=== PATIENT | male | born 1975 | race Caucasian/White ===

== ENCOUNTER 2020-10-15 04:14 | Emergency (ER) | payer BC, OTHER ==
[~2020-10-15] VITALS: Ht 182.9 cm; Wt 81.6 kg
--- NOTE | 2020-10-15 04:15 | NUR ---
PT AAOX4. BIBRA FROM HOME C/O HAVING SEIZURE LASTING ABOUT 1 MIN, WITNESSED BY , NO INJURIES NOTED. PLACED IN BED 11 ON MONITOR AND PULSE OX. SEIZURE PREC INITIATED. ER MD AT BEDSIDE. AWAITING ORDERS. PER RA REPORT, PT HAVING BENZO WITHDRAWLS.
[2020-10-15] MEDS ORDERED: LORAZEPAM INJ 2 MG/ML VIAL ONE (04:44)
[2020-10-15] MEDS: IV NS 0.9% 1,000 ML BAG IV ONE (04:50)
[2020-10-15 04:51] LABS: BASOPHILS % (AUTO) 0.3 % (0.0-2.0); EOSINOPHILS % (AUTO) 3.8 % (0.0-6.0); HEMATOCRIT 40 % (39-51); HEMOGLOBIN 13.8 g/dL (13.5-17.5); LYMPHOCYTES # (AUTO) 1.7 K/uL (0.8-4.8); MEAN CORPUSCULAR HGB CONC 34 g/dl (31.0-36.0); MEAN CORPUSCULAR VOLUME 82 fL (80-96); MONOCYTES # (AUTO) 0.5 K/uL (0.1-1.30); MONOCYTES % (AUTO) 7.7 % (2.0-12.0); NEUTROPHILS # (AUTO) 4.1 K/uL (1.8-8.9); NEUTROPHILS % (AUTO) 62.2 % (43.0-81.0); PLATELET COUNT (AUTO) 257 K/uL (150-450); RED BLOOD CELL COUNT(AUTO) 4.91 MIL/uL (4.5-6.0); WHITE BLOOD COUNT (AUTO) 6.6 K/uL (4.3-11.0)
[2020-10-15] MEDS: LORAZEPAM INJ 2 MG/ML VIAL IV ONE (04:51)
[2020-10-15 05:00] LABS: CALCIUM, SERUM 8.7 mg/dL (8.5-10.1); CARBON DIOXIDE 23 mmol/L (21-32); CHLORIDE 108 mmol/L (98-107); CREATININE 1.2 mg/dL (0.6-1.3); GLUCOSE 125 mg/dL (74-106); POTASSIUM 3.5 mmol/L (3.5-5.1); SODIUM SERUM 142 mmol/L (136-145); UREA NITROGEN, BLOOD 9 mg/dL (7-18)
[2020-10-15 05:05] LABS: ALANINE AMINOTRANSFERASE 29 U/L (12-78); ALBUMIN 3.6 g/dL (3.4-5.0); ALKALINE PHOSPHATASE 75 U/L (46-116); ASPARTATE AMINOTRANSFERASE 20 U/L (15-37); BILIRUBIN,DIRECT 0.1 mg/dL (0.0-0.2); BILIRUBIN,TOTAL 0.7 mg/dL (0.2-1.0); TOTAL PROTEIN, SERUM 6.8 g/dL (6.4-8.2)
--- NOTE | 2020-10-15 05:09 | NUR ---
LACTIC 3.5, ER AWARE.
[2020-10-15] MEDS ORDERED: ALPR0.5T PO (06:10)
--- NOTE | 2020-10-15 06:49 | NUR ---
IV removed. Catheter intact and site benign. Pressure and 4x4 applied to site. No bleeding noted.
[2020-10-15 06:56] VITALS: BP 124/72
--- NOTE | 2020-10-15 06:56 | NUR ---
Patient discharged to home in stable condition. Written and verbal after care instructions given. Patient verbalizes understanding of instruction and RX. Pt ambulated out of ED.
== END 2020-10-15 06:58 | disposition home or self-care (01) ==
LOC: ER 04:16
DX: R56.9 Unspecified convulsions (principal); F13.239 Sedative, hypnotic or anxiolytic dependence with withdrawal, unspecified; Z79.899 Other long term (current) drug therapy
CPT/HCPCS: 36415; 80048; 80076; 83605; 85025; 96361; 96374; 99283; J2060; J7030

== ENCOUNTER 2022-06-14 05:45 | Emergency (ER) | payer BC, OTHER ==
[~2022-06-14] VITALS: Ht 185.4 cm; Wt 81.6 kg
[~2022-06-14 05:45] MED LIST: ALPR0.5T PO
--- NOTE | 2022-06-14 05:58 | NUR ---
[id number] FROM HOME C/O EYE IRRITATION X1 HR AFTER TOUCHING PLANT AND TOUCHING EYES. PT PLACED COMFORTABLY ON BED, VITALS CHECKED.
[2022-06-14] MEDS ORDERED: LORAZEPAM 1 MG TABLET PO ONE (06:00)
[2022-06-14] MEDS ORDERED: TETRAcaine 5 ML BOTTLE EACHEYE ONE (06:00)
--- NOTE | 2022-06-14 06:00 | NUR ---
DR BRIAN LEVIN AT PT'S BEDSIDE FOR EVAL
[2022-06-14] MEDS ORDERED: LORAZEPAM 1 MG TABLET ONE (06:06)
--- NOTE | 2022-06-14 06:28 | NUR ---
EMT AT PT'S BEDSIDE FOR EYE IRRIGATION
[2022-06-14] MEDS ORDERED: GENT5DRO4 EACHEYE (07:39)
--- NOTE | 2022-06-14 07:52 | NUR ---
IV removed. Catheter intact and site benign. Pressure and 4x4 applied to site. No bleeding noted.Patient discharged to home in stable condition. Written and verbal after care instructions given. Patient verbalizes understanding of instruction.
[2022-06-14 07:53] VITALS: BP 131/77
== END 2022-06-14 07:53 | disposition home or self-care (01) ==
LOC: ER 05:46
DX: H10.9 Unspecified conjunctivitis (principal)
CPT/HCPCS: 99283; A4223